=== PATIENT | female | born 1965 | race Caucasian/White ===

== ENCOUNTER 2020-01-09 10:43 | Outpatient (CLI) | payer OTHER, SELFPAY ==
[2020-01-09 19:51] LABS: COVID-19 RT-PCR UVMMC Result Negative (Negative)
== END 2020-01-09 11:03 ==
PROVIDERS: PCP Physician Assistant; Visit Provider Physician Assistant
DX: Z11.59 Encounter for screening for other viral diseases (principal)
CPT/HCPCS: U0003

== ENCOUNTER 2022-07-08 10:21 | Outpatient (REF) | payer OTHER, SELFPAY ==
--- NOTE | 2022-07-08 09:30 | PAPFT_PTH ---
PATIENT: Fartun Callaway LOC: [facility]#:[id number] AGE/SX: 57/F ROOM: RE07/08/[address]: Shelbie Ospina : 1965 BED: DIS: 07/08/2022 SPEC #: [id number] RECD: 07/08/22 17:24 STATUS: SIDRA REMckayla #: [id number] MAGDALENA: 07/08/22 09:[address]: Shelbie Ospina DEPT: [facility] Cytology RECD BY: Yelitza Duncan ENTERED: 07/08/22 17:24 SP TYPE: PAPFT OTHR DR: Mark Ramon Tissues: 1 - CX/ENDOCX FOR PAP SMEARS Procedures: PAP THIN PREP/UVM Screening HPV DNA PROBE Comments: [id number]
[2022-07-08 16:51] LABS: HCT 39.9 % (36.0-46.0); HGB 13.7 g/dL (11.2-15.7); MCHC 34.3 % (32.0-36.0); MCV 90 fL (80-95); MPV 10.5 fL (8.0-11.0); Platelet Count 293 10^3/uL (130-400); RBC 4.42 10^6/uL (3.93-5.22); RDW 13.3 % (11.7-14.6); RDW-SD 44.9 fL; WBC 6.82 10^3/uL (4.4-10.8)
[2022-07-08 17:33] LABS: Anion Gap 9.5 mmol/L (3-11); BUN 15 mg/dL (7-18); CO2 25.5 mmol/L (21.0-32.0); CREATININE 0.7 mg/dL (0.55-1.02); Calcium 9.4 mg/dL (8.5-10.1); Calculated LDL 144 mg/dL (<100); Chloride 101 mmol/L (98-107); Cholesterol 235 mg/dL (<200); Estimated GFR 102.07 (mL/min/1.73m2); Glucose 96 mg/dL (74-106); HDL Cholesterol 79 mg/dL (40-60); Potassium 3.9 mmol/L (3.5-5.1); Sodium 136 mmol/L (136-145); Triglyceride 61 mg/dL (<150)
== END 2022-07-08 10:22 | disposition home or self-care (01) ==
LOC: NCHCN 10:21
PROVIDERS: PCP Physician Assistant; Visit Provider Nurse Practitioner Family
DX: F33.1 Major depressive disorder, recurrent, moderate (principal); R63.6 Underweight; Z00.00 Encounter for general adult medical examination without abnormal findings; Z12.4 Encounter for screening for malignant neoplasm of cervix; Z13.220 Encounter for screening for lipoid disorders; Z11.51 Encounter for screening for human papillomavirus (HPV)
CPT/HCPCS: 80048; 80061; 85027; 88142; 87624

== ENCOUNTER 2024-11-10 08:20 | Day surgery (SDC) | payer SELFPAY ==
[2024-11-10 08:18] VITALS: BP 168/96; PULSE 70; RESP 15; TEMP 36.4; O2SAT 100
[2024-11-10] MEDS: ACETAMINOPHEN 1,000 MG/100 ML BAG 400 MG IVPB (08:30)
[2024-11-10] MEDS: Bupivacaine 0.5% Pres-Free 30 ML VIAL IJ (08:32)
[2024-11-10] MEDS: MORPHine 4 MG/ML SYR IVP (08:32)
--- NOTE | 2024-11-10 08:43 | W.ED.GENAD ---
Discharge Plan Disposition Patient Disposition: Admit to [facility] Condition: Stable Discharge Details Chief Complaint: Orthopedic Clinical Impression: Fracture of distal end of left radius, Closed fracture of distal end of left ulna Primary Care Provider: Mark Ramon ED Provider: Jonathon Marquis Home Meds and New Rx's Prescriptions: No Action venlafaxine 75 mg capsule,extended release 24hr 150 mg PO DAILY Patient Comments: TAKE TWO CAPSULES BY MOUTH EVERY DAY Discharge Orders Discharge Orders: Discharge Order (Routine); Ordered 11/10/24 Ordered By: Wu Soliman [facility] General Date/Time Provider Initiated Documentation: 11/10/24 08:26. HPI Narrative: 59-year-old female with no past medical history who is right-hand dominant presents for left wrist injury. Patient states that about an hour or 2 ago she kicked at a piece of cardboard while she was trying to clean up her room, this caused her to fall and land on her left wrist. She had immediate pain, contacted EMS, notable deformity was present, she was splinted and brought to the ER for further evaluation. She denies hitting her head or any other pain anywhere else. She denies any numbness tingling or weakness. No other complaints at this time. She is not on any blood thinners. Related Data Home Medications ?Medication ?Instructions ?Recorded ?Confirmed venlafaxine 75 mg capsule,extended 150 mg PO DAILY 11/10/24 11/10/24 release 24 hr Allergies Allergy/AdvReac Type Severity Reaction Status Date / Time No Known Allergies Allergy Verified 11/10/24 08:27 General Stated Complaint: Orthopedic LENI: 3 Exam Narrative Exam Narrative: 1.Const: Well-nourished, Well-developed, appearing stated age 2.Eyes: PERRL, no conjunctival injection, and symmetrical lids. 3.ENT: Atraumatic external nose and ears. Moist MM. Neck: Symmetric, trachea midline, No thyromegaly. 4.CVS: +S1/S2, Peripheral pulses 2+ and equal in all extremities. Brisk capillary refill in all extremities. 5.RESP: Unlabored respiratory effort. Clear to auscultation bilaterally. No wheezes rales or rhonchi 6.GI: Soft, Nontender/Nondistended, No hepatosplenomegaly. No guarding or rebound. 7.MSK: Notable deformity of left wrist, within dorsal eversion of the radius and ulna. However distally she has excellent capillary refill less than 2 seconds, normal sensation in all fingers, and good movement. Radial pulse intact/+2. No other signs of trauma 8.Skin: Warm, Dry. No rashes or lesions. 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 Sensation grossly intact, no focal neurologic deficits. 10.Psych: (AAO) x3. Appropriate mood and affect Course Vital Signs Vital signs: Vital Signs Temperature 36.4 C 11/10/24 08:18 Pulse 70 11/10/24 08:18 Respiratory Rate 15 11/10/24 08:18 Blood Pressure 168/96 H 11/10/24 08:18 Pulse Oximetry 100 11/10/24 08:18 Temperature 36.4 C 11/10/24 08:18 Temperature Source Oral 11/10/24 08:18 Pulse 70 11/10/24 08:18 Respiratory Rate 15 11/10/24 08:18 Blood Pressure 168/96 H 11/10/24 08:18 Blood Pressure Position Sitting 11/10/24 08:18 Pulse Oximetry 100 11/10/24 08:18 Oxygen Delivery Method Room Air 11/10/24 08:18 Oxygen Flow Rate 0 11/10/24 08:18 Pain Level 8 11/10/24 08:26 Procedure Nerve Block 1st Nerve Block: Date of Procedure: 11/10/24 Time of procedure: 10:54 Provider that performed the procedure: Jonathon Marquis Indication: Local pain control Standard Time Out Performed: Yes Patient Consented: Verbally Local Anesthetic: Bupivicaine 0.25% Amount of anethetic used(mL): 12 Sterility: Sterile Laterality: Left Nerve Blocks: other (Hematoma block). Procedure Tolerated: No Complications and Patient tolerated well Procedure Outcome: Successful Medical Decision Making 59-year-old female with no past medical history who is right-hand dominant presents for left wrist injury. Patient states that about an hour or 2 ago she kicked at a piece of cardboard while she was trying to clean up her room, this caused her to fall and land on her left wrist. She had immediate pain, contacted EMS, notable deformity was present, she was splinted and brought to the ER for further evaluation. She denies hitting her head or any other pain anywhere else. She denies any numbness tingling or weakness. No other complaints at this time. She is not on any blood thinners. Notable deformity of left wrist, within dorsal eversion of the radius and ulna. However distally she has excellent capillary refill less than 2 seconds, normal sensation in all fingers, and good movement. Radial pulse intact/+2. No other signs of trauma. Concern for distal radius and ulnar fracture, FOOSH injury. No evidence to suggest neurovascular compromise. Will get an x-ray to rule out fracture versus sprain, will give hematoma block at this time to help reduce pain, as well as give a small dose of IV morphine and Ofirmev. Expect need for sedation for reduction. Will contact respiratory therapy for preparation. Will monitor closely and reassess. 10:53 AM Patient has a notable comminuted severely displaced intra-articular fracture of the distal radius and ulna, patient remained stable. Pain is notably improved after block. Discussed the case with orthopedics, Dr. Soliman, he will take the patient to the OR for reduction. I have extensively reviewed the treatment plan with the patient. I have addressed all patient concerns at this time. I have also discussed the plan with the admitting physician and they agree with the current assessment and plan and have agreed to assume responsibility for the patient. All parties demonstrate verbal understanding and agreement with our assessment and plan at this time. The documentation in this chart was dictated using Re[employer] dictation software. Please excuse any dictation errors. FINDINGS: BONES: Are comminuted intra-articular fractures of the distal radius and ulna. There is of full shaft with of displacement posteriorly as well as proximal migration of the distal radius. There is posterior displacement and angulation of the distal radial fracture proximally half shaft with. No carpal or metacarpal fractures are seen.. No bony destructive lesion is seen. JOINTS: The carpal bones are normally aligned. There are degenerative changes at the 1st carpal metacarpal joint. SOFT TISSUE: Normal. IMPRESSION: Comminuted, severely displaced intra-articular fracture of the distal radius. Displaced distal ulnar fracture. Quality:SDOH Health Related Social Needs: No Data to Display PFSH All Active Problems (Updated 11/10/24 @ 10:55 by Jonathon Marquis DO) Closed fracture of distal end of left ulna (Acute) Fracture of distal end of left radius (Acute) Social History Smoking/Tobacco Use Status: Never Smoking risk assessment performed?: Yes Alcohol Intake: never Drug use: Never Substance use type: does not use
--- NOTE | 2024-11-10 09:10 | DI.RAD_ITS ---
Exam(s) XR WRIST LT COMPLETE EXAM: XR WRIST LT COMPLETE CLINICAL HISTORY: fall, distal rad deformity. TECHNIQUE: 2D digital imaging was performed. Three views. COMPARISON: No exams were available for comparison FINDINGS: BONES: Are comminuted intra-articular fractures of the distal radius and ulna. There is of full shaf t with of displacement posteriorly as well as proximal migration of the distal radius. There is post erior displacement and angulation of the distal radial fracture proximally half shaft with. No carpa l or metacarpal fractures are seen.. No bony destructive lesion is seen. JOINTS: The carpal bones are normally aligned. There are degenerative changes at the 1st carpal meta carpal joint. SOFT TISSUE: Normal. IMPRESSION: Comminuted, severely displaced intra-articular fracture of the distal radius. Displaced distal ulnar fracture. DATA REPOSITORY: RADIATION DOSE DELIVERED:
--- NOTE | 2024-11-10 10:39 | W.PM.DSUDISC ---
Date of service: 11/10/24 Discharge Plan Disposition Patient Disposition: Home Condition: Stable Discharge Details Reason For Visit: Calex-Wrist Injury Attending Provider: Wu Soliman Primary Care Provider: Mark Ramon Home Meds and New Rx's Prescriptions: New naproxen 250 mg tablet 250 - 500 mg PO BID PRN (Reason: Moderate pain) Qty: 40 0RF oxycodone 5 mg tablet 5 - 10 mg PO Q4H PRN (Reason: Moderate to severe pain) Qty: 18 0RF Continued venlafaxine 75 mg capsule,extended release 24hr 150 mg PO DAILY Patient Comments: TAKE TWO CAPSULES BY MOUTH EVERY DAY Discharge Instructions Additional Instructions: Surgery: Left distal radius closed reduction with manipulation and splinting under anesthesia 11/10/24 Activity: Nonweightbearing left wrist. May use hand gently. May use sling for support when out of the home. Otherwise, elevate and rest wrist on pillows. Encourage increasing range of motion fingers and thumb to prevent stiffness. Prescriptions: Naproxen 250 mg take 1 every 12 hours with a meal as needed for moderate pain Oxycodone 5 mg take 1 every 4-6 hours as needed for severe pain You may use [id number] Tylenol (acetaminophen) as needed for mild pain. These pain medications may be taken all at once or in different combinations as needed. Also, recommend Colace (docusate) as a stool softener as surgery and pain medicine cause constipation. You may try [id number] diphenhydramine (Benadryl) 25-50 mg nightly as a sleep aid Dressings: Leave splint and dressing in place until follow-up. Keep clean and dry at all times. Follow-up: 10-[address] Soliman You may take off the leg compression stockings this evening at home. You may also leave them on a few days longer if you have a history of leg swelling or edema. Let us know right away if you develop any redness, drainage, fevers, chest pain, or trouble breathing. Do not drink alcohol or drive for at least 24 hours after anesthesia. Please call the office during business hours with any questions or concerns. Stand Alone Forms: Anesthesia Discharge Inst., Aj Pizano (DSU) Discharge Orders Discharge Orders: Discharge Order (Routine); Ordered 11/10/24 Ordered By: Wu Soliman DS: Diagnosis Discharge Diagnosis (1) Closed fracture of distal end of left ulna: Status: Acute (2) Fracture of distal end of left radius: Status: Acute
[2024-11-10 11:04] VITALS: BP 129/104; PULSE 60; RESP 18; TEMP 36.6; O2SAT 99
[2024-11-10] MEDS: Lactated Ringers 1,000 ML 30 ML IV (11:25)
--- NOTE | 2024-11-10 11:41 | W.ANESPRE ---
General Info Date of Service Date Performed: 11/10/24 Height: 5 ft 6 in Weight: 55.9 kg Body Mass Index (BMI): 19.8 Surgical Procedure: Operation Date: 11/10/24 11:10 Proposed Procedure Side Surgeon p Closed Reduction Wrist Left Wu Soliman MD Meds Allergies and Home Medications Allergies Allergy/AdvReac Type Severity Reaction Status Date / Time No Known Allergies Allergy Verified 11/10/24 08:27 Home Medication ?Medication ?Instructions ?Recorded venlafaxine 75 mg capsule,extended 150 mg PO DAILY 11/10/24 release 24 hr Current Visit Medications: Current Medications Generic Name Dose Route Start Last Admin Trade Name Freq PRN Reason Stop Dose Admin Acetaminophen 1,000 mg 11/10/24 10:39 Acetaminophen 500 Mg Tab PO Q6H PRN PRN Ringer's Solution 1,000 mls @ 30 mls/hr 11/10/24 06:00 11/10/24 11:25 IV 11/10/24 23:59 30 mls/hr INFUSION BOONE Administration Cefazolin Sodium/Dextrose 2 gm in 50 mls @ 100 mls/hr 11/10/24 06:00 Ancef Duplex IVPB 11/10/24 23:59 PREOP BOONE IV Miscellaneous Supplies 1 each 11/10/24 06:00 Iv Access IV 11/10/24 23:59 DIRECTED BOONE Naproxen 250 - 500 mg 11/10/24 10:39 Naproxen 500 Mg Tab PO BID PRN PRN Oxycodone HCl 0 mg 11/10/24 10:39 Oxycodone 5 Mg Tab PO Q3H PRN PRN Pain Sodium Chloride 0 ml 11/10/24 06:00 Normal Saline Flush 10 Ml Syr IV 11/10/24 23:59 PRN PRN Sodium Chloride 0 ml 11/10/24 06:00 Normal Saline 10 Ml Vial IJ 11/10/24 23:59 DIRECTED PRN Sterile Water 0 ml 11/10/24 06:00 Water,Injection,Sterile 10 Ml Vial IJ 11/10/24 23:59 DIRECTED PRN PFSH Active Problems Active Problems: Problem Status Onset Code Closed fracture of distal end of left ulna Acute S52.602A Fracture of distal end of left radius Acute S52.502A Tobacco Smoking/Tobacco Use Status: Never Alcohol Alcohol Intake: never Substance Use Substance use: Never Substance use type: does not use Vital Signs and Lab Results Vital Signs Most Recent Vital Signs in EMR: Most Recent Vital Signs Temp Pulse Resp BP Pulse Ox 36.6 C 60 18 129/104 H 99 11/10/24 11:04 11/10/24 11:04 11/10/24 11:04 11/10/24 11:04 11/10/24 11:04 Lab Results Blood Type / Crossmatch: No Data to Display Complete Blood Count: No Data to Display Complete Metabolic Panel: No Data to Display Liver Function Panel: No Data to Display Coagulation Panel: No Data to Display Cardiac Panel: No Data to Display Arterial Blood Gas: No Data to Display Venous Blood Gas: No Data to Display Pancreas Panel: No Data to Display Thyroid Panel: No Data to Display Infectious Disease: No Data to Display Blood Cultures: No Data to Display Toxicology Panel: No Data to Display Anesthesia Assessment and Plan Anesthesia History Personal History: No History of Anesthesia Complications Family History: No Family History of Anesthesia Complications Exercise Tolerance Exercise Tolerance: Metabolic Equivalents>4 Pertinent Negatives Pertinent Negatives: No Symptoms of GERD Cardiac & Pulmonary Exam Cardiac Exam: Normal S1/S2 Heart Sounds Pulmonary Exam: Clear Bilateral Breath Sounds Implantable Cardiac Device Does patient have a Pacemaker or an ICD?: No Airway Exam Known Difficult Airway: No Mallampati Class: 2 Mouth Opening: Normal (> 3cm) Thyromental Distance: Greater than 3 cm Neck Range of Motion: Full ROM Neck Circumference: Normal Teeth Condition: Normal Dentition ASA Classification ASA Score: ASA 1 Emergency Case?: No NPO Status NPO Status: NPO Small Non-Fatty Meal >6 hours (coffee with small amount of cream at 0700) Anesthesia Plan Resuscitation Status: Full Code Anesthesia Technique: General Anesthesia Airway Planned: Natural Airway Pain Management: Surgeon and patient request nerve block Monitors Used: Standard Monitors
[2024-11-10 11:43] VITALS: BMI 19.8
--- NOTE | 2024-11-10 13:04 | OCONE_ITS ---
Date of service: 11/10/24 Time of Service: 13:04 Assessment and Plan Assessment and plan (1) Fracture of distal end of left radius: Status: Acute Assessment and plan: 59-year-old female with widely displaced left distal radius distal ulna fractures Brief note due to time constraints, mechanical slip and fall today, left wrist obvious deformity, reportedly no numbness or tingling, able to demonstrate motor fingers and thumb gently and slightly, but no obvious compartment problems in the forearm, not open, but final inspection was made in the OR due to a tightly wrapped Coban splint. Reviewed the urgency for reduction and high potential for staged ORIF. No complicating medical factors. Non-smoker. Nondiabetic. Ariqx-eeha-pcxshleo. 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 No prior wrist or hand problems on the side. Decision to proceed today with left wrist closed reduction with manipulation under anesthesia The risks, benefits, and alternatives were thoroughly discussed. Patient was counseled regarding pain management, expected postoperative course, and recovery timeline. All questions were answered. Informed consent was obtained. Agree and understand treatment plan. Follow up 10-14 days after surgery. Breathing comfortably on room air. No coughs or wheezes. 2+ right radial pulse. Regular rate and rhythm. (2) Closed fracture of distal end of left ulna: Status: Acute [facility] All Active Problems (Updated 11/10/24 @ 13:05 by Wu Soliman MD) Closed fracture of distal end of left ulna (Acute) Fracture of distal end of left radius (Acute 11/10/24) Social History Smoking/Tobacco Use Status: Never Smoking risk assessment performed?: Yes Alcohol Intake: never Drug use: Never Substance use type: does not use Housing: house Do you feel safe at home: Yes Do you feel safe in your relationship?: Yes Results Last Vital Signs Temp 97.9 F 11/10/24 11:04 Pulse 60 11/10/24 11:04 Resp 18 11/10/24 11:04 BP 129/104 H 11/10/24 11:04 Pulse Ox 99 11/10/24 11:04
--- NOTE | 2024-11-10 13:10 | W.PM.OP ---
Operative Note Operative Note PRE-OP DIAGNOSIS: Widely displaced left distal radius and ulna fractures POST-OP DIAGNOSIS: same PROCEDURE: Left wrist closed reduction with manipulation under anesthesia, CPT #53064 SURGEON: Wu Soliman ANESTHESIA TYPE: General LMA/ETT Refer to Anesthesia Record COMPLICATIONS: None Patient was transported to: PACU Patient's condition: stable Indications: Please see complete medical record for details. Procedure Description: In the operating room, general anesthesia was induced. The patient was positioned supine on the stretcher. Preoperative antibiotics were omitted. The correct patient, procedure, and side of the procedure were all verified prior to beginning. Using the single bench lathe operator reduction maneuver, the obvious deformity was gently exaggerated and traction applied with excellent almost immediate reduction. Slight additional pressure was done to maintain radial height and length with ulnar deviation as well as some additional flexion and volar force to ensure as complete reduction as possible. C-arm fluoroscopy was used to confirm excellent alignment. A well molded plaster sugar-tong splint was then applied to the extremity with 3 point mold held until hardened. Final fluoroscopic images confirmed maintained excellent reduction and alignment in the plaster splint. The patient awoke from anesthesia without complication and was transferred to the recovery room in a stable condition. Although the fracture reduced very nicely and was stable from reduction through splinting it remains very high risk for redisplacement and requiring future ORIF. Date of Procedure: 11/10/24
[2024-11-10 13:36] VITALS: BP 99/68; PULSE 81; RESP 16; TEMP 35.7; O2SAT 95
--- NOTE | 2024-11-10 13:40 | W.ANESPOSTOP ---
Postoperative Evaluation Date, Time and Location Date Performed: 11/10/24 Time Performed: 13:40 Patient Location: Day Surgery Unit Vital Signs Most Recent Imported Vital Signs: Most Recent Vital Signs Temp Pulse Resp BP Pulse Ox 35.7 C L 81 16 99/68 L 95 11/10/24 13:36 11/10/24 13:36 11/10/24 13:36 11/10/24 13:36 11/10/24 13:36 Pain Score Most Recent Pain Score: Most Recent Pain Score Pain Level [Left Wrist] 8 11/10/24 08:26 Pain Level 0 11/10/24 13:36 Assessment Mental Status: Awake (Alert & Oriented to Patient Baseline) Airway and Respiratory Function: Patent airway with normal (patient baseline) respiratory exam Cardiovascular Function: Hemodynamically Stable Hydration Status: Adequately Hydrated Nausea & Vomiting: No Nausea or Vomiting Pain: Pain is tolerable per patient Peripheral Nerve Block: Patient did not receive a nerve block
--- NOTE | 2024-11-10 13:45 | DI.RAD_ITS ---
Exam(s) XR WRIST LT LIMITED EXAM: XR WRIST LT LIMITED CLINICAL HISTORY: LEFT WRIST FRACTURE. TECHNIQUE: 2D and realtime digital imaging was performed. COMPARISON: CR XR WRIST LT COMPLETE from 11/10/2024 FINDINGS: Hard copy images show marked improvement in the alignment of the previously noted distal radial and ulnar fractures. Please see procedure note for details. Fluoro time: 8.2seconds RADIATION DOSE DELIVERED: Ka,r=0.15 mGy
[2024-11-10 14:06] VITALS: BP 104/67; PULSE 59; RESP 18; TEMP 36.1; O2SAT 96
== END 2024-11-10 15:03 | disposition home or self-care (01) ==
LOC: ER 10:55 → SUR 11:01
PROVIDERS: Emergency Provider Student in an Organized Health Care Education/Training Program; PCP Physician Assistant; Visit Provider Student in an Organized Health Care Education/Training Program
PROC: (CPT 25605; principal; 2024-11-10 11:00)
DX: X58.XXXA Exposure to other specified factors, initial encounter; S52.352A Displaced comminuted fracture of shaft of radius, left arm, initial encounter for closed fracture; S52.252A Displaced comminuted fracture of shaft of ulna, left arm, initial encounter for closed fracture
CPT/HCPCS: 25605; 76000; 73100; 73110; J0131; J0665; J1100; J1885; J2270; J2405; J2704

== ENCOUNTER 2024-11-23 15:57 | Outpatient (CLI) | payer SELFPAY ==
--- NOTE | 2024-11-23 15:00 | DI.RAD_ITS ---
Exam(s) XR WRIST LT LIMITED EXAM: XR WRIST LT LIMITED CLINICAL HISTORY: F/U FRACTURE. TECHNIQUE: 2D digital imaging was performed. COMPARISON: XA XR WRIST LT LIMITED from 11/10/2024 CR XR WRIST LT COMPLETE from 11/10/2024 FINDINGS: 3 in splint views The impacted displaced fracture of the distal radius is again noted although with improvement in alig nment compared to the original images of 11/10/2024. Alignment of the distal ulna are fracture fragm ents is also improved. However, there appears to be some further displacement when compared to the immediate post closed red uction images of 11/10/2024 IMPRESSION: As above DATA REPOSITORY: RADIATION DOSE DELIVERED:
== END 2024-11-23 15:58 | disposition home or self-care (01) ==
LOC: DIORS 15:57
PROVIDERS: PCP Physician Assistant; Visit Provider Student in an Organized Health Care Education/Training Program
DX: S52.252D Displaced comminuted fracture of shaft of ulna, left arm, subsequent encounter for closed fracture with routine healing (principal); X58.XXXD Exposure to other specified factors, subsequent encounter
CPT/HCPCS: 73100

== ENCOUNTER 2024-11-30 15:57 | Outpatient (CLI) | payer SELFPAY ==
--- NOTE | 2024-11-30 15:15 | DI.RAD_ITS ---
Exam(s) XR WRIST LT LIMITED EXAM: XR WRIST LT LIMITED CLINICAL HISTORY: F/U FRACTURE. TECHNIQUE: 2D digital imaging was performed. Three views. COMPARISON: XA XR WRIST LT LIMITED from 11/10/2024 CR XR WRIST LT COMPLETE from 11/10/2024 CR XR WRIST LT LIMITED from 11/23/2024 FINDINGS: A cast is in place which partially obscures the bony detail. BONES: There has been no change in the alignment of the impacted distal radial fracture from most rec ent exam. There is increased impaction and dorsal displacement when compared with the immediate post reduction images. JOINTS: The carpal bones are normally aligned. SOFT TISSUE: Normal. IMPRESSION: Stable alignment of the distal radial and ulnar fractures. DATA REPOSITORY: RADIATION DOSE DELIVERED:
== END 2024-11-30 15:58 | disposition home or self-care (01) ==
LOC: DIORS 15:57
PROVIDERS: PCP Physician Assistant; Visit Provider Student in an Organized Health Care Education/Training Program
DX: S52.352D Displaced comminuted fracture of shaft of radius, left arm, subsequent encounter for closed fracture with routine healing (principal); X58.XXXD Exposure to other specified factors, subsequent encounter
CPT/HCPCS: 73100